=== PATIENT | female | born 1995 | race Caucasian/White ===

== ENCOUNTER 2019-07-31 07:45 | Emergency (ER) | payer BC, SELFPAY ==
[~2019-07-31] VITALS: Ht 165.1 cm; Wt 63.5 kg
[2019-07-31 07:54] VITALS: Ht 165.1 cm; Wt 63.5 kg
[2019-07-31 09:20] VITALS: BP 111/78
== END 2019-07-31 09:20 | disposition home or self-care (01) ==
LOC: ED 07:45
DX: R07.89 Other chest pain (principal); Z20.828 Contact with and (suspected) exposure to other viral communicable diseases
CPT/HCPCS: Q0092